=== PATIENT | female | born 1990 | race Caucasian/White ===

== ENCOUNTER 2016-12-26 01:00 | Emergency (ER) | payer BC ==
[~2016-12-26] VITALS: Ht 160 cm; Wt 69.8 kg
[~2016-12-26 01:00] MED LIST: HYDR-5688 PO; ZLF/100 PO
[2016-12-26 01:03] VITALS: BP 148/92; PULSE 106; TEMP 36.8; O2SAT 100; Ht 160 cm; Wt 69.8 kg
[2016-12-26] MEDS ORDERED: CEPHALEXIN 500MG HOME PACK 1 EA BTL PO ONE (01:15)
[2016-12-26] MEDS ORDERED: NORCO 5/325MG HOME PACK PO ONE (01:15)
[2016-12-26] MEDS ORDERED: BACITRACIN OINT 15 GM TUBE EXT ONE (01:15)
[2016-12-26] MEDS ORDERED: CEPH500C PO (01:19)
[2016-12-26] MEDS ORDERED: NAPR1TAB9 PO (01:21)
[2016-12-26] MEDS ORDERED: DIPH25CA5 PO (01:21)
[2016-12-26] MEDS ORDERED: SERT100T PO (01:21)
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
== END 2016-12-26 01:26 | disposition home or self-care (01) ==
LOC: C.EDB 01:01
DX: L03.211 Cellulitis of face (principal); F41.9 Anxiety disorder, unspecified; Z87.828 Personal history of other (healed) physical injury and trauma; Z79.899 Other long term (current) drug therapy; Z88.2 Allergy status to sulfonamides; Z88.8 Allergy status to other drugs, medicaments and biological substances

== ENCOUNTER 2017-04-14 09:17 | Emergency (ER) | payer BC, OTHER ==
[~2017-04-14] VITALS: Ht 160 cm; Wt 71.5 kg
[~2017-04-14 09:17] MED LIST changes: +BND25 PO; +NAPR1TAB9 PO; +SERT100T PO; -ZLF/100 PO
[2017-04-14 09:20] VITALS: TEMP 36.7; Ht 160 cm; Wt 71.5 kg
[2017-04-14] MEDS ORDERED: ACET-1256 PO (11:04)
[2017-04-14 11:07] LABS: URINE APPEARANCE CLEAR (CLEAR); URINE BILIRUBIN NEG (NEG); URINE COLOR ORANGE; URINE EPITHELIAL CELL AUTO >30 /lpf (0-5); URINE NITRITE NEG (NEG); URINE PH 8.5 (4.5-7.5); UROBILINOGEN NEG (NEG); ZZUR CULT IF INDIC CLEAN CATCH YES
[2017-04-14] MEDS ORDERED: PRENTAB26 PO (11:07)
[2017-04-14] MEDS ORDERED: [UNRECOGNIZED DRUG - OTHER] PO (11:07)
[2017-04-14 11:09] LABS: MANUAL MICROSCOPIC REQUIRED? NO; REVIEW REQ? YES
[2017-04-14] MEDS ORDERED: ACYC1OIN4 TOP (11:10)
[2017-04-14] MEDS ORDERED: ZNF/4 PO (11:10)
[2017-04-14] MEDS ORDERED: VALA1TAB31 PO (11:10)
[2017-04-14 11:12] LABS: BASO % 0.2 %; BASO ABS # 0.01 K/uL (0-0.2); COMPLETE YES; EOS % 1.1 %; HEMATOCRIT 44.3 % (37-47); IG% 0.2 %; LYMPH % 24.9 %; LYMPH ABS # 1.38 K/uL (1.2-3.4); MEAN CELL VOLUME 87.4 fL (80-100); MEAN CORPUSCULAR HEMOGLOBIN 29.6 pg (25-34); MEAN CORPUSCULAR HGB CONC 33.9 g/dl (32-36); MEAN PLATELET VOLUME 11.4 fL (7.4-10.4); MONO % 5.4 %; NEUT % 68.2 %; PLATELET COUNT 229 K/uL (130-400); RED BLOOD COUNT 5.07 M/uL (4.2-5.4); WHITE BLOOD COUNT 5.54 K/uL (4.8-10.8)
[2017-04-14 11:16] LABS: SULFASALICYLIC ACID POS (NEG)
[2017-04-14 11:20] LABS: URINE MUCUS PRESENT (NONE PRSENT)
[2017-04-14 11:23] LABS: BUN/CREATININE RATIO 13.5 (10-20); CALCIUM 9.9 mg/dl (8.5-10.1); CREATININE 0.66 mg/dl (0.60-1.20); POTASSIUM 3.6 mmol/L (3.5-5.1)
--- NOTE | 2017-04-14 12:55 | DIAGNOSTIC IMAGING REPORT ---
PELVIC COMPLETE NON OB HISTORY: 27 years-old Female b/l lower abd crampbing and pain acute lower abdominal pain. COMPARISON: CT abdomen and pelvis 12/31/2013 TECHNIQUE: Multiple real-time sonographic images of the deep pelvic structures were obtained transabdominally and transvaginally assessing grayscale appearance, color and spectral flow. FINDINGS: TRANSABDOMINAL: Anteflexed uterus measures 6.5 x 2.9 x 3.3 cm. Endometrium is homogeneous, 0.4 cm. Right ovary measures 2.2 x 1.4 x 1.5 cm with arterial inflow documented. Left ovary measures 1.9 x 1.4 x 2.3 cm with arterial inflow documented. TRANSVAGINAL: Anteflexed uterus measures 7.0 x 2.8 x 3.0 cm. Endometrium is homogeneous, 0.3 cm. No focal myometrial mass lesions are identified. There are suggested nabothian cysts. Left ovary measures 2.4 x 1.6 x 2.6 cm. There is a thick-walled cystic structure within the left ovary measuring up to 1.6 x 1.5 cm suggesting an involuting follicle. Arterial inflow is seen within the left ovary. Right ovary measures 1.8 x 1.2 x 1.3 cm and is unremarkable with arterial inflow documented. No significant free pelvic fluid. IMPRESSION: 1. Involuting follicle of the left ovary, 1.6 cm. Ovaries are otherwise unremarkable with arterial inflow documented bilaterally. 2. Normal sonographic appearance of the uterus and endometrium. The above report was generated using voice recognition software. It may contain grammatical, syntax or spelling errors. Electronically signed by: Hola Coker M.D. 04/14/2017 12:54 PM Dictated Date/Time: 04/14/2017 12:49 PM
[2017-04-14] MEDS ORDERED: ONDANSETRON INJ 2 MG/ML 2 ML VIAL IV STA (14:20)
[2017-04-14] MEDS ORDERED: CEPH500C PO (14:24)
[2017-04-14] MEDS ORDERED: ONDA4TAB65 PO (14:24)
[2017-04-14] MEDS ORDERED: CEPHALEXIN MONOHYDRATE 250 MG CAP PO ONE (14:30)
[2017-04-14 14:41] VITALS: BP 145/85; PULSE 97; O2SAT 98
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
== END 2017-04-14 14:42 | disposition home or self-care (01) ==
LOC: C.EDB 09:19 → C.EDC 14:42
DX: N93.8 Other specified abnormal uterine and vaginal bleeding (principal); N39.0 Urinary tract infection, site not specified; F41.9 Anxiety disorder, unspecified

== ENCOUNTER → 2017-08-25 | Outpatient (CLI) | payer OTHER ==
[~2017-08-25] MED LIST changes: +ACET-1256 PO; +ACYC1OIN4 TOP; -BND25 PO; +CEPH500C PO; +PRENTAB26 PO; +VALA1TAB31 PO; +ZNF/4 PO; +[UNRECOGNIZED DRUG - OTHER] PO
[2017-08-25 17:29] LABS: BASO % 0.2 %; BASO ABS # 0.02 K/uL (0-0.2); EOS % 1.1 %; EOS ABS # 0.09 K/uL (0-0.5); HEMATOCRIT 44.5 % (37-47); IG# 0.02 K/uL (0.00-0.02); LYMPH % 19.5 %; LYMPH ABS # 1.65 K/uL (1.2-3.4); MEAN CELL VOLUME 87.3 fL (80-100); MEAN CORPUSCULAR HEMOGLOBIN 29.4 pg (25-34); MEAN CORPUSCULAR HGB CONC 33.7 g/dl (32-36); MEAN PLATELET VOLUME 12.3 fL (7.4-10.4); MONO % 5.6 %; MONO ABS # 0.47 K/uL (0.11-0.59); NEUT % 73.4 %; NEUT ABS # 6.21 K/uL (1.4-6.5); PLATELET COUNT 238 K/uL (130-400); RED CELL DISTRIBUTION WIDTH SD 41.8 fL (36.4-46.3); WHITE BLOOD COUNT 8.46 K/uL (4.8-10.8)
[2017-08-25 17:41] LABS: ALBUMIN 4.2 gm/dl (3.4-5.0); ALT/SGPT 19 U/L (12-78); AST/SGOT 17 U/L (15-37); BLOOD UREA NITROGEN 12 mg/dl (7-18); CALCIUM 9.5 mg/dl (8.5-10.1); CARBON DIOXIDE 27 mmol/L (21-32); CREATININE 0.59 mg/dl (0.60-1.20); GLUCOSE 71 mg/dl (70-99); POTASSIUM 3.6 mmol/L (3.5-5.1); SODIUM 138 mmol/L (136-145)
[2017-08-25 17:51] LABS: ALKALINE PHOSPHATASE 103 U/L (45-117); TOTAL PROTEIN 8.5 gm/dl (6.4-8.2)
== END | disposition home or self-care (01) ==
LOC: C.LABPBG 11:49
PROVIDERS: ATTEND Family Medicine
DX: R53.83 Other fatigue (principal)

== ENCOUNTER → 2017-10-01 | Outpatient (CLI) | payer BC | END | disposition home or self-care (01) | LOC: C.LABPBG 10:10 | PROVIDERS: ATTEND Family Medicine | DX: O03.9 Complete or unspecified spontaneous abortion without complication (principal) ==

== ENCOUNTER → 2017-10-04 | Outpatient (CLI) | payer BC ==
[~2017-10-04] MED LIST changes: -ACET-1256 PO; -ACYC1OIN4 TOP; -CEPH500C PO; -HYDR-5688 PO; -NAPR1TAB9 PO; +OMEG10007 PO; -PRENTAB26 PO; +PRENTAB65 PO; -SERT100T PO; -VALA1TAB31 PO; -ZNF/4 PO; -[UNRECOGNIZED DRUG - OTHER] PO
== END | disposition home or self-care (01) ==
LOC: C.LABPBG 07:20
PROVIDERS: ATTEND Family Medicine
DX: Z32.01 Encounter for pregnancy test, result positive (principal)

== ENCOUNTER 2017-10-10 10:56 | Emergency (ER) | payer BC ==
[~2017-10-10] VITALS: Ht 160 cm; Wt 73.4 kg
[2017-10-10 11:04] VITALS: TEMP 36.6; Ht 160 cm; Wt 73.4 kg
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
[2017-10-10] MEDS ORDERED: PRENTAB65 PO (11:36)
[2017-10-10] MEDS ORDERED: OMEG10007 PO (11:36)
[2017-10-10 12:02] LABS: BASO % 0.4 %; BASO ABS # 0.03 K/uL (0-0.2); EOS % 0.9 %; EOS ABS # 0.06 K/uL (0-0.5); HEMATOCRIT 43.1 % (37-47); HEMOGLOBIN 14.8 g/dL (12.0-16.0); IG# 0.07 K/uL (0.00-0.02); LYMPH % 18.7 %; LYMPH ABS # 1.29 K/uL (1.2-3.4); MEAN CELL VOLUME 85.9 fL (80-100); MEAN CORPUSCULAR HEMOGLOBIN 29.5 pg (25-34); MEAN CORPUSCULAR HGB CONC 34.3 g/dl (32-36); MEAN PLATELET VOLUME 11.1 fL (7.4-10.4); MONO % 6.9 %; MONO ABS # 0.48 K/uL (0.11-0.59); NEUT % 72.1 %; NEUT ABS # 4.98 K/uL (1.4-6.5); PLATELET COUNT 240 K/uL (130-400); RED CELL DISTRIBUTION WIDTH SD 40.6 fL (36.4-46.3); WHITE BLOOD COUNT 6.91 K/uL (4.8-10.8)
[2017-10-10 12:28] LABS: PTT PATIENT 27.7 SECONDS (21.0-31.0)
[2017-10-10 12:29] LABS: ALBUMIN 4.2 gm/dl (3.4-5.0); CALCIUM 9.8 mg/dl (8.5-10.1); CREATININE 0.64 mg/dl (0.60-1.20); TOTAL PROTEIN 8.5 gm/dl (6.4-8.2)
--- NOTE | 2017-10-10 12:49 | DIAGNOSTIC IMAGING REPORT ---
ULTRASOUND OF THE PELVIS CLINICAL HISTORY: . Spotting. COMPARISON STUDY: Pelvic ultrasound dated 04/14/2017. TECHNIQUE: Real-time, grayscale, and color flow sonography of the pelvis is performed both transabdominally and endovaginally. Images are reviewed in the transverse and longitudinal planes. FINDINGS: Uterus: The uterus is normal in size and echotexture, measuring 7.0 x 2.5 x 3.7 cm. Endometrium: The endometrium is normal in appearance, and the endometrial stripe is normal in thickness measuring up to 0.6 cm. Ovaries: The ovaries are normal in size and morphology. The right ovary measures 2.4 x 1.9 x 2.3 cm and the left ovary measures 3.0 x 2.4 x 3.5 cm. A 2.0 cm dominant follicle is noted in the left ovary. Normal Doppler waveforms are shown within both ovaries. Pelvis: There is no free fluid in the cul-de-sac. No concerning adnexal lesion is seen. IMPRESSION: No intrauterine gestation is identified. This could simply reflect an intrauterine gestation that is too small to visualize or a missed . Although there is no concerning adnexal lesion identified, in the setting of a positive test without a confirmed intrauterine gestation ectopic would be impossible to exclude. Close clinical, laboratory, and sonographic follow-up is recommended. Electronically signed by: Tobias Laura M.D. 10/10/2017 12:48 PM Dictated Date/Time: 10/10/2017 12:46 PM
[2017-10-10 13:06] VITALS: BP 144/86; PULSE 86; O2SAT 100
== END 2017-10-10 13:07 | disposition home or self-care (01) ==
LOC: C.EDB 10:59 → C.EDC 13:07
DX: O20.0 Threatened abortion (principal); Z3A.01 Less than 8 weeks gestation of pregnancy; M54.9 Dorsalgia, unspecified; M79.7 Fibromyalgia; Z88.8 Allergy status to other drugs, medicaments and biological substances; Z88.6 Allergy status to analgesic agent; Z88.2 Allergy status to sulfonamides

== ENCOUNTER → 2017-10-12 | Outpatient (CLI) | payer BC | END | disposition home or self-care (01) | LOC: C.LABPBG 07:54 | PROVIDERS: ATTEND Obstetrics & Gynecology | DX: O20.9 Hemorrhage in early pregnancy, unspecified (principal); Z3A.00 Weeks of gestation of pregnancy not specified ==

== ENCOUNTER → 2017-10-14 | Outpatient (CLI) | payer BC | END | disposition home or self-care (01) | LOC: C.LAB1850 08:03 | PROVIDERS: ATTEND Obstetrics & Gynecology | DX: O20.9 Hemorrhage in early pregnancy, unspecified (principal); Z3A.00 Weeks of gestation of pregnancy not specified ==

== ENCOUNTER → 2017-10-21 | Outpatient (CLI) | payer BC | END | disposition home or self-care (01) | LOC: C.LABPBG 15:23 | PROVIDERS: ATTEND Obstetrics & Gynecology | DX: O03.9 Complete or unspecified spontaneous abortion without complication (principal) ==

== ENCOUNTER → 2017-10-29 | Outpatient (CLI) | payer BC | END | disposition home or self-care (01) | LOC: C.LABPBG 10:28 | PROVIDERS: ATTEND Obstetrics & Gynecology | DX: O03.9 Complete or unspecified spontaneous abortion without complication (principal) ==

== ENCOUNTER → 2017-11-05 | Outpatient (CLI) | payer BC | END | disposition home or self-care (01) | LOC: C.LABPBG 08:38 | PROVIDERS: ATTEND Obstetrics & Gynecology | DX: O03.9 Complete or unspecified spontaneous abortion without complication (principal) ==

== ENCOUNTER 2020-02-17 08:07 | Observation (INO) ==
[2020-02-17] MEDS ORDERED: NIFEdipine 10 MG CAP PO STA ×2 (08:40→09:51)
[2020-02-17] MEDS ORDERED: ALBUTEROL HFA 8 GM INHALER INH PRN (08:41)
[2020-02-17 08:46] LABS: Basophils # (auto) 0.01 K/uL (0-0.2); Basophils % (auto) 0.1 %; Hematocrit (blood only) 34.8 % (37-47); Hemoglobin 11.2 g/dL (12.0-16.0); Immature Granulocytes # (auto) 0.05 K/uL (0.00-0.02); Immature Granulocytes % (auto) 0.4 %; Lymphocytes # (auto) 1.88 K/uL (1.2-3.4); Lymphocytes % (auto) 15.2 %; Mean Corpuscular Hemoglobin 26.7 pg (25-34); Mean Corpuscular Hgb Conc 32.2 g/dL (32-36); Mean Corpuscular Volume 82.9 fL (80-100); Mean Platelet Volume 12.5 fL (7.4-10.4); Monocytes # (auto) 0.88 K/uL (0.11-0.59); Monocytes % (auto) 7.1 %; Neutrophils # (auto) 9.55 K/uL (1.4-6.5); Neutrophils % (auto) 77.2 %; Platelet Count 216 K/uL (130-400); RDW Coefficient of Variation 13.8 % (11.5-14.5); RDW Standard Deviation 41.6 fL (36.4-46.3); White Blood Count 12.37 K/uL (4.8-10.8)
[2020-02-17] MEDS ORDERED: LEVOCETIRIZINE 5 MG SCH (09:00)
[2020-02-17] MEDS ORDERED: SERTRALINE HCL 100 MG TABLET PO SCH (09:00)
[2020-02-17] MEDS ORDERED: SERTRALINE HCL 50 MG TABLET PO SCH (09:00)
[2020-02-17 09:17] LABS: Alanine Aminotransferase 13 U/L (12-78); Albumin Level 2.2 gm/dl (3.4-5.0); Aspartate Aminotransferase 17 U/L (15-37); BUN Creatinine Ratio 23.3 (10-20); Bilirubin Direct < 0.1 mg/dl (0-0.2); Blood Urea Nitrogen 14 mg/dl (7-18); Calcium 9.3 mg/dl (8.5-10.1); Carbon Dioxide 20 mmol/L (21-32); Chloride 108 mmol/L (98-107); Est GFR (African American) 143.6; Est GFR (Non-African American) 123.9; Glucose 75 mg/dl (70-99); Sodium 138 mmol/L (136-145)
[2020-02-17 09:20] LABS: Alkaline Phosphatase 132 U/L (45-117); Bilirubin,Total 0.2 mg/dl (0.2-1); Total Protein 6.5 gm/dl (6.4-8.2)
[2020-02-17 09:39] LABS: Protein Creatinine Ratio Urine 3.1 (0-0.2); Total Protein Urine Random 823.1 mg/dl (0-11.9)
[2020-02-17] MEDS ORDERED: MAG SULFATE 4GM BOLUS FROM BAG IV ONE (09:46)
[2020-02-17] MEDS ORDERED: MAGNESIUM SULFATE 40GM / WTR 1,000 ML BAG IV ONE (09:52)
[2020-02-17] MEDS ORDERED: MAGNESIUM SULFATE / WTR 40 GM/1,000 ML BAG IV SCH (10:00)
--- NOTE | 2020-02-17 10:16 | History & Physical Report ---
Date of Service February 17, 2020 Assessment & Plan (1) Pre-eclampsia or eclampsia superimposed on pre-existing hypertension, an tepartum: IUP at 31 weeks in nulliparous female with history of gestational HTN now with super imposed pre-eclampsia with sever features. No PIH symptoms presently except for a mild frontal headache All PIH labs done at 0830 this AM are stable except fo spot urine creatinine/protein ratio is 3.1 will start MgSO4 now. She has received to doses of Nifedipine so far that has been effective to reduce her BP. will also give celestone now in preparation for transfer. Patient prefers to be sent to [facility] if possible. Transfer accepted to [facility] [place] [place] by Dr. Lewis. Patient aware of the implications of the diagnosis of pre-eclampsia with severe features although labs are still normal. Admission and Anticipated Discharge Date Admission Date: February 17, 2020 History of Present Illness Primary Care Provider: Janine Villaseñor DO Patient is a 30 yo white female EDC 04/19/20 who presents at 31 weeks with lower abdominal cramping for several hours with a history of having pink show 2 days ago hen bloody show today with the cramping. The has been complicated by gestational hypertension first diagnosed at 27 4/7 weeks.Weekly PIH labs have been normal. She still has no PIH symptoms on admission today however BP's are persistently elevated with 3+ proteinuria. The cramping appears to be mild contractions every 5-7 minutes. Allergies Allergy/AdvReac Type Severity Reaction Status Date / Time prednisone Allergy Intermediate SYNCOPE Verified 02/16/20 13:25 Bactrim Allergy Unknown REDNESS, Verified 10/10/17 11:37 ITCHYNESS sulfamethoxazole Allergy Unknown REDNESS, Verified 02/16/20 13:25 ITCHYNESS trimethoprim Allergy Unknown REDNESS, Verified 02/16/20 13:25 ITCHYNESS Sulfa (Sulfonamide Allergy Verified 02/16/20 13:25 Antibiotics) tramadol AdvReac Unknown SYNCOPE Verified 02/16/20 13:25 Home Medications Home Medications Medication Instructions Recorded Confirmed Type sertraline 100 mg tablet 100 mg PO DAILY #30 tab 06/16/19 02/16/20 Rx vits 75-iron 28 mg-folic 1 pkt PO DAILY 09/19/19 02/16/20 History acid 800 mcg-omega3 440 mg oral pack Saccharomyces boulardii [Florastor] 250 mg PO BID #20 cap 09/30/19 02/16/20 Rx albuterol sulfate [Ventolin HFA] 1 puffs Q4WK PRN 09/30/19 02/16/20 History acyclovir 5 % topical ointment 1 appln TOPICAL TID PRN #1 gm 10/05/19 02/16/20 Rx famciclovir 500 mg tablet 1,500 mg PO .COMPLEX #30 tab 10/05/19 02/16/20 Rx famotidine 40 mg tablet 40 mg PO BID #60 tab 10/19/19 02/16/20 Rx hydroxyzine HCl 25 mg tablet 25 mg PO TID PRN #30 tab 10/19/19 02/16/20 Rx ondansetron HCl 4 mg tablet 4 mg PO Q6H PRN #20 tab 01/04/20 02/16/20 Rx levocetirizine 5 mg tablet 5 mg PO QPM PRN #30 tab 01/12/20 02/16/20 Rx valacyclovir 1 gram tablet 1,000 mg PO TID PRN tab 01/12/20 02/16/20 History sertraline 25 mg tablet 25 mg PO DAILY #90 tab 01/24/20 02/16/20 Rx cephalexin 250 mg capsule 250 mg PO QID 4 Days #16 cap 02/17/20 Rx Patient History Social History Preferred Language: Bengali Visual Impairment: No Limitations Hearing Ability: Normal Provider Scribe Required: No Beliefs That Will Affect Care: None marital status: Current Living Situation: Spouse Current Living Situation Comment: Lives w/ spouse, and spouse 2 children current occupational status: employed current occupation: [employer] Feels Safe at Home: Yes Safety Concerns: Feels Safe At This Time Smoking Status: Never smoker Second Hand Exposure: No ; Hx Alcohol Use: Yes Alcohol Intake Frequency: Rarely Hx Substance Use: No Childhood Exposure to Second-Hand Smoke: No Diet Comment: regular caffeine: Yes Dental Care, Regularly: Yes Physical Activity Frequency: Daily Seatbelt Use: always Sunscreen Use: No Review of Systems All systems reviewed & are unremarkable except as noted in HPI & below Physical Exam Constitutional: WD/WN, vitals as above Respiratory: normal respiratory effort, lungs clear to auscultation Cardiovascular: RRR, no murmur, no edema Gastrointestinal (Abdomen): normal bowel sounds, soft, nontender, no hepatosplenomegaly Neurologic: 3+ reflexes with clonus in both lower extremities. Psychiatric: A+Ox3, euthymic affect Genitourinary: OB Exam Abdomen: + vertex and + irregular contractions (5-7 minutes apart before MgSO4) Manual OB Exam: + cervical dilation (closed), + cervical effacement 50% and + station -2 OB Exam Monitor Tracing: + external FHT monitor used, + external uterine monitor used and + category I Results & Data ([facility]) Vital Signs (Past 12 Hours) Vital Signs Temp Pulse Resp BP Pulse Ox 02/17/20 10:03 94 H 152/91 H 02/17/20 10:02 104 H 99 02/17/20 09:57 112 H 98 02/17/20 09:55 100 H 158/96 H 02/17/20 09:52 114 H 95 02/17/20 09:48 114 H 169/101 H 02/17/20 09:47 110 H 97 02/17/20 09:42 94 H 97 02/17/20 09:37 103 H 97 02/17/20 09:33 109 H 152/82 H 02/17/20 09:32 109 H 97 02/17/20 09:30 112 H 146/83 H 02/17/20 09:27 122 H 99 02/17/20 09:25 117 H 145/71 H 02/17/20 09:22 130 H 98 02/17/20 09:20 131 H 144/80 H 02/17/20 09:17 127 H 98 02/17/20 09:16 98.2 F 104 H 18 156/88 H 02/17/20 09:12 85 98 02/17/20 09:11 75 171/97 H 02/17/20 09:07 90 99 02/17/20 09:06 77 176/96 H 02/17/20 09:02 86 98 02/17/20 09:00 86 170/98 H 02/17/20 08:57 81 99 02/17/20 08:56 79 172/98 H 02/17/20 08:52 94 H 99 02/17/20 08:51 82 179/97 H 02/17/20 08:47 80 99 02/17/20 08:45 82 165/97 H 02/17/20 08:42 89 99 02/17/20 08:40 85 166/95 H 02/17/20 08:37 79 98 02/17/20 08:36 78 170/99 H 02/17/20 08:32 76 99 02/17/20 08:31 78 179/100 H 02/17/20 08:25 88 170/95 H 02/17/20 08:22 75 181/101 H 02/17/20 08:21 87 188/103 H Coding Level of Care Code 74284 OBS Care - Level 3 Diagnoses Pre-eclampsia or eclampsia superimposed on pre-existing hypertension, antepartum
[2020-02-17] MEDS ORDERED: BETAMETH SOD PHOS/ACETATE IA 6 MG/ML IM STA (10:20)
[2020-02-17] MEDS ORDERED: NIFEdipine EXTENDED REL 30 MG TABCR PO STA (10:38)
--- NOTE | 2020-02-22 03:50 | Discharge Summary (DS) ---
PRINCIPAL DIAGNOSES: Intrauterine at 31 weeks, pre-existing gestational hypertension, now preeclampsia with severe features with transfer to [facility]. HISTORY OF PRESENT ILLNESS AND HOSPITAL COURSE: The patient is a 30-year-old white female G1, P0, EDC of 04/19/2020, who presented with 31 weeks with lower abdominal cramping as well as having a pink type discharge and bloody show today. She presented to labor and delivery with continued menstrual-like cramping. She had been followed in the office for gestational hypertension. All of her labs to this point have been normal. When she arrived at labor and delivery, her blood pressure was noted to be markedly elevated at 188/103. Pressures remained high until she received 10 mg of nifedipine. At that point, her blood pressures dropped to the normal range, but then continued to increase once again. She required 2 doses of nifedipine. Second dose was a 20 mg dose. All her PIH labs were normal except that her urine creatinine protein ratio was 3.1. On dip stick of her urine was 4+ proteinuria upon arrival in labor and delivery. heart tones were reassuring, but because of the proteinuria, elevated blood pressure which was difficult to control with nifedipine, a request for transfer to [facility] was done and accepted by Dr. Lewis. She was given 30 mg of nifedipine XR prior to leaving our facility via helicopter. She was begun on mag sulfate prior to her discharge and she did receive the first dose of Celestone. [facility]
== END 2020-02-17 12:35 | disposition short-term general hospital (02) ==
LOC: OPB 08:07 → 4S1 08:07